=== PATIENT | female | born 1990 | race Caucasian/White ===

== ENCOUNTER 2023-04-18 09:12 | Inpatient (IN) | payer OTHER, SELFPAY ==
[2023-04-18] VITALS (27 sets, daily range): BP systolic 101–119; BP diastolic 57–74; PULSE 87–114; RESP 12–20; TEMP 36.4–43; O2SAT 94–987; BMI 21.4
--- NOTE | 2023-04-18 09:27 | ED_ITS ---
Discharge Plan Disposition Patient Disposition: Still a Patient Clinical Impressions Clinical Impression: Acute appendicitis Discharge ED Provider: Ignacio Ko General Adult HPI General Chief complaint: Abdominal Pain Stated complaint: abd pain Time Seen by Provider: 04/18/23 09:22 Mode of Arrival: Wheelchair Source of Information: Patient Limitations: No Limitations Description of Symptoms (Recalled from ER Triage Doc. by RN): r lower abdominal pain History of Present Illness HPI narrative: Patient is an otherwise healthy 32-year-old female presenting to the ED due to abdominal pain. Patient states she woke up in the middle of the night with severe right lower abdominal pain and nausea. She went to the bathroom and had a bowel movement. Proceeded to have episodes of vomiting. She returned to sleep however upon waking back up this morning, pain had worsened. She has continued to have associated nausea and vomiting and subjective fevers and chills. She states she has also had difficulty urinating this morning. It has been painful for her to urinate. Denies any blood in urine, stool or vomit. Denies any history of similar symptoms. Denies any abdominal surgeries. Last menstrual cycle was in January 2023 however reports she is on Depo shot. Related Data Home Medications Medication Instructions Recorded Confirmed buprenorphine 8 mg-naloxone 2 mg See Rx Instructions .Route .COMPLEX 04/18/23 04/18/23 sublingual tablet Allergies Allergy/AdvReac Type Severity Reaction Status Date / Time No Known Allergies Allergy Verified 04/18/23 09:39 [facility] Disclaimer: The information contained in this section may have been updated after the patient was seen, as this information can be updated by other users. Medical History (Updated 04/18/23 @ 17:01 by Tonya Nath) Substance abuse Surgical History (Updated 04/18/23 @ 17:00 by Tonya Nath) S/P appendectomy Family History (Updated 04/18/23 @ 17:00 by Tonya Nath) Other No significant family history Social History (Updated 04/18/23 @ 16:59 by Tonya Nath) Smoking Status: Current every day smoker alcohol intake: former substance use type: denies use current occupational status: employed and unemployed Travel in the last 8 weeks: None ROS Obtained: Yes All systems reviewed & no additional complaints except as documented Constitutional Constitutional: Reports chills and Reports fever(s) Cardiovascular Cardiovascular: Denies chest pain and Denies dyspnea Respiratory Respiratory: Denies shortness of breath, Denies cough and Denies dyspnea Gastrointestinal Gastrointestingal: Reports abdominal pain, nausea and vomiting Genitourinary Female Genitourinary: Reports difficulty voiding and Reports dysuria Musculoskeletal Musculoskeletal: Denies back pain Physical Exam General General appearance: alert and in no apparent distress Head Head exam: atraumatic, normocephalic and normal inspection Eye Eye exam: Present normal appearance, PERRL and EOMI ENT ENT exam: Present normal exam, normal oropharynx, mucous membranes moist, TM's normal bilaterally and normal external ear exam Neck Neck exam: Present normal inspection, full ROM and trachea midline; Absent meningismus or lymphadenopathy Chest Chest inspection: Present normal inspection and symmetric chest wall rise; Absent tenderness Respiratory Respiratory exam: Present normal lung sounds bilaterally; Absent respiratory distress Cardiovascular Cardiovascular exam: Present regular rate and normal rhythm; Absent JVD Abdominal Exam Abdominal exam: Present soft, tenderness and normal bowel sounds; Absent distention or guarding Abdominal tenderness: Present RLQ and suprapubic Comment: Generalized abdominal tenderness localized to right lower quadrant and suprapubic region. Extremities Exam Extremities exam: Present normal inspection, full ROM and normal capillary refill; Absent calf tenderness Back Exam Back exam: Present normal inspection; Absent tenderness Neurological Exam Neurological exam: Present alert and oriented X3 Psychiatric Psychiatric exam: Present normal affect and normal mood Skin Skin exam: Present warm, dry, intact and normal color Lymphatic Lymphatic Findings: no adenopathy Medical Decision Making Medical Records Medical records reviewed: Yes I reviewed the patient's medical records. Richard Inquiry Pt receiving controlled substance: No Richard was queried for this patient: No Vital Signs: 04/18/23 09:15 04/18/23 09:30 04/18/23 10:00 Temperature 98.3 F Temperature Source Oral Pulse Rate 98 H 92 H Pulse Rate [Right] 87 Respiratory Rate 20 18 Blood Pressure 119/70 115/67 Blood Pressure [Right Arm] 111/66 Blood Pressure Mean 83 Blood Pressure Mean [Right Arm] 81 Blood Pressure Source Blood Pressure Position 02 Sat by Pulse Oximetry 98 98 97 Oxygen Delivery Method Room Air Room Air 04/18/23 11:28 04/18/23 11:30 04/18/23 12:31 Temperature Temperature Source Pulse Rate 106 H 102 H 111 H Pulse Rate [Right] Respiratory Rate 20 Blood Pressure 111/69 114/74 105/63 L Blood Pressure [Right Arm] Blood Pressure Mean 87 83 Blood Pressure Mean [Right Arm] Blood Pressure Source Blood Pressure Position 02 Sat by Pulse Oximetry 97 96 95 Oxygen Delivery Method Room Air Room Air 04/18/23 13:00 04/18/23 13:18 Temperature 98.0 F Temperature Source Oral Pulse Rate 114 H 100 H Pulse Rate [Right] Respiratory Rate 16 Blood Pressure 107/64 L 107/64 L Blood Pressure [Right Arm] Blood Pressure Mean Blood Pressure Mean [Right Arm] Blood Pressure Source Automatic Cuff Blood Pressure Position Sitting 02 Sat by Pulse Oximetry 95 Oxygen Delivery Method Room Air Room Air Lab Data Lab Results 04/18/23 09:20: WBC 18.4 H, RBC 4.39, Hgb 14.1, Hct 43.2, MCV 98.4, MCH 32.2 H, MCHC 32.7, RDW 12.6, Plt Count 271, MPV 7.7, Neut % (Auto) 85.5 H, Lymph % (Auto) 10.0, [place] % (Auto) 4.0, Eos % (Auto) 0.2, Baso % (Auto) 0.4, Neut # (Auto) 15.7 H, Lymph # (Auto) 1.8, [place] # (Auto) 0.7, Eos # (Auto) 0.0, Baso # (Auto) 0.1, Total Counted 100, Neutrophils % (Manual) 84 H, Lymphocytes % (Manual) 13, Monocytes % (Manual) 3, Platelet Estimate Normal, RBC Morphology Normal, Sodium 140, Potassium 3.3 L, Chloride 107, Carbon Dioxide 25, Anion Gap 11.3, BUN 11, Creatinine 0.50 L, Estimated Creat Clear 146, Estimated GFR 144, Est GFR ( Amer) 174, Glucose 138 H, Lactate 0.9, Calcium 9.1, Total Bilirubin 0.9, AST 46 H, ALT 40, Alkaline Phosphatase 72, Total Protein 7.5, Albumin 4.3, Globulin 3.2, Albumin/Globulin Ratio 1.3, Lipase 38, Serum HCG, Qual Negative 04/18/23 11:45: Urine Color Yellow, Urine Appearance Clear, Urine pH 6.0, Ur Specific [place] 1.010, Urine Protein Negative, Urine Glucose (UA) Negative, Urine Ketones 1+, Urine Blood 1+, Urine Nitrate Negative, Urine Bilirubin Negative, Urine Urobilinogen 0.2, Ur Leukocyte Esterase Negative, Urine RBC Occasional, Urine WBC None, Ur Squamous Epith Cells 3-5, Urine Bacteria Trace, Urine HCG, Qual Negative 04/18/23 14:30: Urine Color Yellow, Urine Appearance Clear, Urine pH 6.0, Ur Specific [place] 1.015, Urine Protein Negative, Urine Glucose (UA) Negative, Urine Ketones 1+, Urine Blood 2+, Urine Nitrate Negative, Urine Bilirubin Negative, Urine Urobilinogen 0.2, Ur Leukocyte Esterase Negative 04/18/23 09:20 04/18/23 09:20 Orders (Tests/Meds): ED MEDICATIONS Generic Name Dose Route Start Last Admin Trade Name Freq PRN Reason Stop Dose Admin Acetaminophen 650 mg 04/18/23 16:02 Acetaminophen 325mg Tab PO 05/18/23 16:01 Q6HP PRN Mild to Moderate Pain (1-6) Hydrocodone Bitart/Acetaminophen 1 tab 04/18/23 16:02 Hydrocodone/Apap 5/325 Mg Tablet PO 05/18/23 16:01 Q6HP PRN Moderate to Severe Pain (4-10) Sodium Chloride 1,000 mls @ 500 mls/hr 04/18/23 09:30 04/18/23 09:48 Sod Chlor 0.9% 1000ml Bag IV 05/18/23 09:29 500 mls/hr .Q2H SAMARIA Administration Lactated Ringer's 1,000 mls @ 125 mls/hr 04/18/23 16:15 04/18/23 16:49 Lactated Ringer's 1000 Ml Bag IV 05/18/23 16:14 125 mls/hr .Q8H SAMARIA Administration Ampicillin Sodium/Sulbactam 100 mls @ 200 mls/hr 04/18/23 16:15 Sodium 3 gm/ Sodium Chloride IV 04/28/23 16:14 Q6H SAMARIA Meperidine HCl 25 mg 04/18/23 15:17 04/18/23 15:53 Meperidine 25mg/Ml 1ml Syringe IV 04/18/23 17:17 25 mg Q5MINP PRN Administration Shivering Morphine Sulfate 2 mg 04/18/23 15:17 Morphine 2mg/Ml Syringe IV 04/18/23 17:17 Q5MINP PRN Moderate Pain (4-6) Morphine Sulfate 1 mg 04/18/23 16:02 Morphine 2mg/Ml Syringe IV 05/18/23 16:01 Q2HP PRN Moderate to Severe Pain (4-10) Ondansetron HCl 4 mg 04/18/23 15:17 Ondansetron 4mg/2ml Vial IV 04/18/23 17:17 Q6HP PRN Nausea Sodium Chloride 10 ml 04/18/23 16:02 Sodium Chloride 0.9% 10ml Flush Syringe IV 05/18/23 16:01 NEEDED PRN Maintain IV Site Discontinued Medications Generic Name Dose Route Start Last Admin Trade Name Freq PRN Reason Stop Dose Admin Piperacillin Sod/Tazobactam 100 mls @ 200 mls/hr 04/18/23 13:00 Sod 4.5 gm/ Sodium Chloride IV 04/28/23 12:59 Q8H SAMARIA Iopamidol 75 ml 04/18/23 11:02 04/18/23 11:02 Iopamidol-370 (76%);100ml Bottle IV 04/18/23 11:03 75 ml ONCE ONE Administration Morphine Sulfate 4 mg 04/18/23 09:27 04/18/23 09:48 Morphine 4mg/Ml Syringe IV 04/18/23 09:28 4 mg ONCE ONE Administration Ondansetron HCl 4 mg 04/18/23 09:27 04/18/23 09:48 Ondansetron 4mg/2ml Vial IV 04/18/23 09:28 4 mg ONCE ONE Administration Sodium Chloride 10 ml 04/18/23 11:02 04/18/23 11:02 Sodium Chloride 0.9% 10ml Syr (Rad Only) IV 04/18/23 11:03 10 ml ONCE ONE Administration ORDERS Category Date Time Status CT abdomen pelvis w con Stat Cat Scan 04/18/23 09:27 Completed Complete Blood Count Auto Diff Stat Lab 04/18/23 09:20 Completed Comprehensive Metabolic Panel Stat Lab 04/18/23 09:20 Completed Lactic Acid Stat Lab 04/18/23 09:20 Completed Lipase Stat Lab 04/18/23 09:20 Completed Serum [HCG Qualitative, Serum] Stat Lab 04/18/23 09:20 Completed Urinalysis and Microscopic Stat Lab 04/18/23 11:45 Completed Urine , HCG Qual. Stat Lab 04/18/23 11:45 Completed Medical Decision Narrative: In summary, patient is previously healthy 32-year-old female, evaluated in the emergency department today due to right lower quadrant abdominal pain. On arrival, patient is [hemodynamically stable with normal vital signs]. On examination, patient has generalized abdominal tenderness, localized to the right lower quadrant and suprapubic region. Differential diagnosis includes but is not limited to urinary tract infection, kidney stone, pyelonephritis, appendicitis, gastritis, pancreatitis, biliary disease, bowel obstruction, . Workup initiated including CBC, CMP, lipase, lactate, urine , urinalysis, CT Abdo/pelvis with contrast. Patient given IV morphine, Zofran, LR bolus. Labs independently interpreted by me and significant for WBC 18.4 K. Imaging independently interpreted by me and significant for acute appendicitis seen on CT abdomen/pelvis. On reevaluation, patient's symptoms are better controlled. Given findings of appendicitis on CT imaging, IV Zosyn given and general surgery team consulted and case discussed with team. Patient taken to operating room for further management. I considered the utility of obtaining viral testing, but decided against this because this would not international exchange coordinator. Critical Care Critical Care Time Critical Care Time: No
--- NOTE | 2023-04-18 09:27 | CT_ITS ---
FINAL REPORT CLINICAL HISTORY: RLQ pain, nausea/vomiting, dysuria COMPARISON: None FINDINGS: CT OF THE ABDOMEN AND PELVIS WITH CONTRAST Axial CT images of the abdomen and pelvis were obtained after the administration of IV contrast. Coronal reformatted images were also obtained and reviewed. This study was performed with techniques to keep radiation doses as low as reasonably achievable (ALARA). Individualized dose reduction techniques using automated exposure control or adjustment of mA and/or kV according to the patient's size were employed. Abdomen: The lung bases are clear. The heart is normal in size. The liver has an unremarkable appearance, without evidence of mass or biliary ductal dilatation. The spleen is unremarkable. No adrenal mass is present. The pancreas has an unremarkable appearance. The kidneys are normal, without evidence of mass or hydronephrosis. The aorta is normal in caliber. There is no free fluid or adenopathy. No mass or abnormal fluid collection is seen. Pelvis: The appendix is enlarged with wall thickening and adjacent inflammation. The appearance is consistent with acute appendicitis. There is wall thickening at the base of the cecum, likely secondary inflammation. There is a small amount of fluid. The urinary bladder is unremarkable. There is no evidence of mass or adenopathy. There is no evidence of bowel obstruction. There is a large stool burden. IMPRESSION: Acute appendicitis. Reviewed, Interpreted and Dictated by Kayden Medina III, MD Transcribed by Kacey Villalobos Authenticated and . [facility]
[2023-04-18 09:37] LABS: Basophils # 0.1 K/mm3 (0-0.2); Basophils % 0.4 % (0.1-2.0); Eosinophils % 0.2 % (0.1-12.0); Hematocrit 43.2 % (37.0-47.0); Hemoglobin 14.1 g/dL (12.2-16.2); Lymphocytes # 1.8 K/mm3 (0.7-4.5); Mean Corpuscular HGB Conc 32.7 g/dL (31.8-35.4); Mean Corpuscular Hemoglobin 32.2 pg (27.0-31.2); Mean Corpuscular Volume 98.4 fl (81-99); Mean Platelet Volume 7.7 fl (7.4-10.4); Monocytes # 0.7 K/mm3 (0.1-1.0); Neutrophils # 15.7 K/mm3 (1.8-7.8); Neutrophils % 85.5 % (37.0-80.0); Platelet Count 271 K/mm3 (142-424); Red Blood Count 4.39 M/mm3 (4.20-5.40); Red Cell Distribution Width 12.6 % (11.5-17.5); White Blood Count 18.4 K/mm3 (4.8-10.8)
[2023-04-18 09:39] LABS: MANUAL DIFFERENTIAL MANUAL DIFFERENTIAL (MANUAL DIFF)
[2023-04-18 09:40] LABS: Alanine Aminotransferase 40 U/L (12-78); Albumin Level 4.3 g/dl (3.5-5.0); Albumin/Globulin Ratio 1.3 (1.1-1.8); Alkaline Phosphatase 72 U/L (38-126); Anion Gap 11.3 mEq/L (5-15); Aspartate Amino Transferase 46 U/L (14-36); Bilirubin,Total 0.9 mg/dl (0.2-1.3); Blood Urea Nitrogen 11 mg/dl (7-17); Calcium 9.1 mg/dl (8.4-10.2); Carbon Dioxide 25 mmol/L (22.0-30.0); Chloride 107 mmol/L (98-107); Creatinine Clearance Estimated 146 mL/min (50-200); Estimated Glomerular Filt Rate 144 ml/min (>60); GFR (African American) 174 ML/MIN (>60); Globulin 3.2 g/dL (1.3-3.2); Glucose 138 mg/dl (74-100); Lipase 38 U/L (23-300); Potassium 3.3 mmoL/L (3.5-5.1); Sodium 140 mmol/L (136-145); Total Protein,Serum 7.5 g/dl (6.3-8.2)
[2023-04-18 09:44] LABS: Lactic Acid 0.9 mmol/L (0.7-2.1)
[2023-04-18] MEDS: ONDANSETRON 4MG/2ML VIAL 4 MG IV (09:48)
[2023-04-18] MEDS: 0.9 % SODIUM CHLORIDE 1000ML 1,000 ML 500 ML IV (09:48)
[2023-04-18] MEDS: MORPHINE 4MG/ML SYRINGE 4 MG IV (09:48)
--- NOTE | 2023-04-18 09:51 | PC.NURSE ---
Pt resting in bed. Warm blanket provided. Call light within reach.
--- NOTE | 2023-04-18 10:03 | HMH.ITSTN ---
ct pending. waiting results of preg test.
--- NOTE | 2023-04-18 10:13 | PC.NURSE ---
Rounded on pt. Advised her pain had improved slightly. Pt provided with warm blanket. Call light remains within reach.
--- NOTE | 2023-04-18 10:26 | PC.NURSE ---
pt was unable to void @ this time.
[2023-04-18 10:34] LABS: Lymphocytes % 13 % (10-50); Monocytes % 3 % (2-9); Neutrophils % 84 % (42-76); Platelet Estimate Normal; RBC Morphology Normal; Total Cells Counted 100
--- NOTE | 2023-04-18 10:37 | PC.NURSE ---
Rounded on Pt to see if they had any needs. Pt stated had no needs at this time.
[2023-04-18 10:40] LABS: HCG Qualitative, Serum Negative (Negative)
--- NOTE | 2023-04-18 10:53 | PC.NURSE ---
PT TO CT
[2023-04-18] MEDS: IOPAMIDOL-370 (76%);100ML BOTTLE 75 ML IV (11:02)
[2023-04-18] MEDS: SODIUM CHLORIDE 0.9% 10ML SYR (RAD ONLY) 10 ML IV (11:02)
--- NOTE | 2023-04-18 11:28 | PC.NURSE ---
Rounded on pt. No needs voiced. Call light within reach
[2023-04-18 11:47] LABS: Microscopic, Urine URINE MICROSCOPIC (MICROSCOPIC)
[2023-04-18 11:51] LABS: Appearance,Urine CLEAR (Clear); Bilirubin,Urine Negative (Negative); Blood, Urine 1+ (Negative); Color,Urine YELLOW (Yellow); Glucose,Urine (UA) Negative (Negative); Ketones,Urine 1+ (Negative); Leukocyte Esterase,Urine Negative (Negative); Nitrate,Urine Negative (Negative); Protein,Urine Negative (Negative); Urobilinogen,Urine 0.2 EU/dl (0.2)
[2023-04-18 11:55] LABS: Urine Pregnancy, HCG Qual. Negative (Negative)
[2023-04-18 12:16] LABS: Bacteria,Urine Trace /lpf; RBC,Urine Occasional #/hpf (0-3)
--- NOTE | 2023-04-18 12:31 | PC.NURSE ---
Rounded on pt. No needs voiced. Call light remains within reach.
--- NOTE | 2023-04-18 12:53 | PC.NURSE ---
paged Dr Plaza
--- NOTE | 2023-04-18 13:01 | PC.NURSE ---
Dr. Ko speaking with Dr. ya
--- NOTE | 2023-04-18 13:02 | PC.NURSE ---
pt given mouth swabs d/t not being able to have anything to eat or drink.
--- NOTE | 2023-04-18 13:03 | PC.NURSE ---
ED MD AT BEDSIDE TO UPDATE PT ON POC
--- NOTE | 2023-04-18 13:10 | PC.NURSE ---
SURGERY CONSENT EXPLAINED AND SIGNED AT THIS TIME
--- NOTE | 2023-04-18 13:17 | PC.NURSE ---
REPORT GIVEN TO YARITZA IN SURGERY
--- NOTE | 2023-04-18 14:07 | EXP.GEN.HP ---
HPI HPI HPI: Patient is a 32-year-old female who had awoken with abdominal pain overnight. She actually did go back to sleep but then awoke once again with more severe abdominal pain. She had associated nausea with vomiting. She presented to the emergency department where she was seen and evaluated. She had a leukocytosis of 18,400. She underwent CT scan which revealed findings of acute appendicitis. Surgical consultation was obtained [facility] Disclaimer: The information contained in this section may have been updated after the patient was seen, as this information can be updated by other users. Social History (Updated 04/18/23 @ 15:16 by Tom Carlson CRNA) Smoking Status: Current every day smoker alcohol intake: former substance use type: denies use current occupational status: unemployed Travel in the last 8 weeks: None Review of Systems Review of Systems Review of systems:: pertinent systems reviewed and negative unless documented below Meds Home Medications and Allergies New Prescriptions to Start Prescriptions: Allergies Allergy/AdvReac Type Severity Reaction Status Date / Time No Known Allergies Allergy Verified 04/18/23 09:39 Exam Data for Last 24 hours Vital signs and Labs for Last 24 Hours: Temp Pulse Resp BP Pulse Ox O2 Del Method 98.0 F 100 H 16 107/64 L 95 Room Air 04/18/23 13:18 04/18/23 13:18 04/18/23 13:18 04/18/23 13:18 04/18/23 13:00 04/18/23 13:18 Laboratory Results - last 24 hr 04/18/23 09:20: WBC 18.4 H, RBC 4.39, Hgb 14.1, Hct 43.2, MCV 98.4, MCH 32.2 H, MCHC 32.7, RDW 12.6, Plt Count 271, MPV 7.7, Neut % (Auto) 85.5 H, Lymph % (Auto) 10.0, [place] % (Auto) 4.0, Eos % (Auto) 0.2, Baso % (Auto) 0.4, Neut # (Auto) 15.7 H, Lymph # (Auto) 1.8, [place] # (Auto) 0.7, Eos # (Auto) 0.0, Baso # (Auto) 0.1, Total Counted 100, Neutrophils % (Manual) 84 H, Lymphocytes % (Manual) 13, Monocytes % (Manual) 3, Platelet Estimate Normal, RBC Morphology Normal, Sodium 140, Potassium 3.3 L, Chloride 107, Carbon Dioxide 25, Anion Gap 11.3, BUN 11, Creatinine 0.50 L, Estimated Creat Clear 146, Estimated GFR 144, Est GFR ( Amer) 174, Glucose 138 H, Lactate 0.9, Calcium 9.1, Total Bilirubin 0.9, AST 46 H, ALT 40, Alkaline Phosphatase 72, Total Protein 7.5, Albumin 4.3, Globulin 3.2, Albumin/Globulin Ratio 1.3, Lipase 38, Serum HCG, Qual Negative 04/18/23 11:45: Urine Color Yellow, Urine Appearance Clear, Urine pH 6.0, Ur Specific [place] 1.010, Urine Protein Negative, Urine Glucose (UA) Negative, Urine Ketones 1+, Urine Blood 1+, Urine Nitrate Negative, Urine Bilirubin Negative, Urine Urobilinogen 0.2, Ur Leukocyte Esterase Negative, Urine RBC Occasional, Urine WBC None, Ur Squamous Epith Cells 3-5, Urine Bacteria Trace, Urine HCG, Qual Negative I & O for Last 24 hours: Intake & Output 04/16/23 04/17/23 04/18/23 04/19/23 11:59 11:59 11:59 11:59 Weight 125 lb Constitutional Constitutional: no acute distress *Routine HEENT Exam Head: Present normocephalic Eye: Present EOMI and PERRL ENT: Present mucous membranes moist *Routine Neck Exam Neck: Present supple; Absent lymphadenopathy *Routine Respiratory Exam Respiratory: Present CTA bilaterally *Routine Cardiovascular Exam Cardiovascular: Present RRR *Routine Abdominal Exam Abdominal: Present soft and tenderness Comments: Patient has diffuse tenderness with guarding particularly right lower quadrant and suprapubic location. *Routine Rectal Exam Rectal:: deferred *Routine Genitalia Exam Genitalia:: deferred *Routine Extremities Exam Extremities: Absent cyanosis, clubbing or edema *Routine Skin Exam Skin: Present warm; Absent rash *Routine Neurological Exam Neurological: Present alert and oriented X3 Results Results Lab Results Last 24 Hours:: Laboratory Results - last 24 hr 04/18/23 09:20: WBC 18.4 H, RBC 4.39, Hgb 14.1, Hct 43.2, MCV 98.4, MCH 32.2 H, MCHC 32.7, RDW 12.6, Plt Count 271, MPV 7.7, Neut % (Auto) 85.5 H, Lymph % (Auto) 10.0, [place] % (Auto) 4.0, Eos % (Auto) 0.2, Baso % (Auto) 0.4, Neut # (Auto) 15.7 H, Lymph # (Auto) 1.8, [place] # (Auto) 0.7, Eos # (Auto) 0.0, Baso # (Auto) 0.1, Total Counted 100, Neutrophils % (Manual) 84 H, Lymphocytes % (Manual) 13, Monocytes % (Manual) 3, Platelet Estimate Normal, RBC Morphology Normal, Sodium 140, Potassium 3.3 L, Chloride 107, Carbon Dioxide 25, Anion Gap 11.3, BUN 11, Creatinine 0.50 L, Estimated Creat Clear 146, Estimated GFR 144, Est GFR ( Amer) 174, Glucose 138 H, Lactate 0.9, Calcium 9.1, Total Bilirubin 0.9, AST 46 H, ALT 40, Alkaline Phosphatase 72, Total Protein 7.5, Albumin 4.3, Globulin 3.2, Albumin/Globulin Ratio 1.3, Lipase 38, Serum HCG, Qual Negative 04/18/23 11:45: Urine Color Yellow, Urine Appearance Clear, Urine pH 6.0, Ur Specific [place] 1.010, Urine Protein Negative, Urine Glucose (UA) Negative, Urine Ketones 1+, Urine Blood 1+, Urine Nitrate Negative, Urine Bilirubin Negative, Urine Urobilinogen 0.2, Ur Leukocyte Esterase Negative, Urine RBC Occasional, Urine WBC None, Ur Squamous Epith Cells 3-5, Urine Bacteria Trace, Urine HCG, Qual Negative Assessment and Plan *Assessment and plan (1) Acute appendicitis: Status: Acute Category: Medical Code(s): K35.80 - Unspecified acute appendicitis Plan Plan will be to proceed with laparoscopic possibly open appendectomy.
[2023-04-18] MEDS: AMPICILLIN/SULBACTAM 3 GM VIAL IV (14:40)
[2023-04-18] MEDS: 0.9 % SODIUM CHLORIDE 100 ML IV (14:40)
[2023-04-18] MEDS: ROPIVACAINE 0.5% 30ML VIAL 150 MG (14:48)
[2023-04-18] MEDS: LIDOCAINE 1% 20ML MDV 20 ML (14:48)
--- NOTE | 2023-04-18 15:15 | P.PNANES_ITS ---
[facility] Disclaimer: The information contained in this section may have been updated after the patient was seen, as this information can be updated by other users. Social History Smoking Status: Current every day smoker alcohol intake: former substance use type: denies use current occupational status: unemployed Travel in the last 8 weeks: None [facility] Anesthesia Checklist Patient Identification Patient Identification: Verbal (Name & ) Structural Data Admitted From: Emergency Dept Planned Operative Procedure/s: lap appy Consent for Planned Operative Procedure(s) Verified: Yes NPO Status Verified Time NPO: 00:00 Airway Assessment Mallampati Score:: Class II C-Spine Mobility Assessed: Yes TMJ Mobility Assessed: Yes Dentition: Poor Dentition Neurological Assessment Level of Consciousness: Awake, Alert and Appropriate Anesthesia Plan Anesthesia Risk discussed: Yes Anesthesia Plan: Verified ASA Class: III Anesthesia Type: General Preoperative Comments Pre-Operative Comments: rotted and missing front teeth prior to surgery
--- NOTE | 2023-04-18 15:48 | P.OP_ITS ---
Date of procedure: 04/18/23 Pre-op Diagnosis:: Acute appendicitis Post-op Diagnosis:: Acute perforated necrotic appendicitis with established peritonitis Procedure performed:: Laparoscopic appendectomy Surgeon:: Kayden Plaza MD PROVIDER RELATIONS REP:: Tom Carlson Anesthesia: GETA Estimated blood loss (mL): 15 Clinical Note:: Patient is a 32-year-old female who had woken with abdominal pain overnight. She actually did go back to sleep but then awoke once again with more severe ab dominal pain. She had associated nausea with vomiting. She presented to the emergency department where she was seen and evaluated. She had a leukocytosis of 18,400. She underwent CT scan which revealed findings of acute appendicitis. Surgical consultation was obtained Operative findings:: Patient had a severely distended appendix with evidence of full-thickness necrosis with perforation near the base. There was established purulence with somewhat feculent peritonitis throughout the abdomen. This was consistent with necrotizing appendicitis with perforation and established peritonitis. She did have findings consistent with fatty infiltration of the liver. Operative note:: Consent was obtained patient was taken to the operating room. She was given preoperative intravenous antibiotics. In the operating room she was placed in a supine position. General anesthesia was induced via endotracheal tube. [place] catheter was placed. Abdomen was prepped and draped in the standard surgical fashion. Subumbilical skin incision was made and while performing abdominal wall lift Veress needle was inserted. CO2 pneumoperitoneum was achieved to 15 mmHg. 12 mm optical trocar was inserted into the abdominal cavity. Immediately noted was evidence of edema in the right lower quadrant essentially with almost a phlegmon formation. There was noted fibrinous purulent exudate with some pus along the right colon, perihepatic space, and in the pelvis. This was suctioned free. Omentum was adherent to the appendix and this was easily removed. Appendix was noted to be markedly distended and tense with evidence of necrosis with perforation near its base. There was evidence of microperforation at the site of the full-thickness necrosis. 5 mm trocar was inserted under laparoscopic vision patient in the left lower pelvis and in the right upper abdomen. 10 mm laparoscope was replaced with a 5 mm 30 degree laparoscope. Appendix was grasped with a [place]. Mesoappendix was carefully divided with BARBARA ultrasonic harmonic mary with care taken to coagulate the appendiceal artery in the process. Appendix was markedly inflamed down to its base with adjacent cecum somewhat edematous and erythematous. The appendix was removed from the cecum. This required using a total of 3 loads of the MEGAN linear cutting stapling device taking a cuff of cecum to relatively normal tissue. Appendix was placed within an Endo Catch retrieval device and removed from the peritoneal cavity via the umbilical trocar site. The staple line was thoroughly inspected for hemostasis and integrity. This was ensured. Irrigation was then performed evacuating purulence, feculence, and exudate. Trocars were then removed as CO2 pneumoperitoneum was evacuated. Fascia at the umbilicus was closed with a couple of 0 Vicryl sutures. Local anesthetic was infiltrated. Skin incisions were closed with 4-0 Monocryl in a subcuticular fashion. Dermabond and dressings were applied. Condition: stable Disposition: PACU Complications:: None immediately apparent
--- NOTE | 2023-04-18 15:48 | EXP.ANES.I ---
[facility] Anesthesia Record Part I Anesthesia Record I Intake, IV Amount: 1,500 Hydration: Adequate Estimated blood loss (mL): 0 Urine output (mL): 300 Blood Pressure: 114/67 SaO2: 987 Pulse Rate: 102 Airway Patency: Patent Respiratory Rate: 12 Temperature: 97.5 F Patient is:: Awake and Stable Stable to PACU at:: 15:45
[2023-04-18] MEDS: MEPERIDINE 25MG/ML 1ML SYRINGE 25 MG IV (15:53)
[2023-04-18 16:21] LABS: Microscopic,Cath URINE MICROSCOPIC (MICROSCOPIC)
[2023-04-18 16:31] LABS: Appearance,Urine/Cath CLEAR (Clear); Bilirubin,Cath Negative (Negative); Blood, Urine/Cath 2+ (Negative); Color,Urine/Cath YELLOW (Yellow); Glucose,Urine/Cath (UA) Negative (Negative); Ketones,Urine/Cath 1+ (Negative); Leukocyte Esterase,Cath Negative (Negative); Nitrate,Cath Negative (Negative); Protein,Urine/Cath Negative (Negative); Specific Gravity, Urine/Cath 1.015 (1.005-1.030); Urobilinogen,Cath 0.2 EU/dl (0.2)
--- NOTE | 2023-04-18 16:37 | PC.NURSE ---
arrived by bed to floor from surgery
[2023-04-18] MEDS: LACTATED RINGERS 1000ML 1,000 ML 125 ML IV (16:49)
[2023-04-18 17:23] LABS: Bacteria,Urine/Cath TRACE /lpf; RBC,Urine/Cath Occasional # /hpf (0-3); Squamous Epithelial Ur./Cath Occasional #/hpf (0-5)
[2023-04-18] MEDS: AMPICILLIN SODIUM/SULBACTAM 3 GM in 0.9 % SODIUM CHLORIDE 100 ML IV ×2 (17:55→22:42)
--- NOTE | 2023-04-18 18:21 | EXP.HP ---
History of Present Illness *Admission Date: 04/18/23 *Reason for visit:: Abdominal Pain *History of present illness: Patient is a 32-year-old female with past medical history of hepatitis C IV drug abuse, substance abuse, per patient she has not used any drugs for past 7 years presented to hospital due to abdominal pain 10/10 intensity associated with nausea vomiting. Patient was found to have acute appendicitis, patient was taken to the OR, patient had appendectomy performed. Patient was admitted for possible infection management and postoperative care. Patient denied fever chills PFSH PFSH Disclaimer: The information contained in this section may have been updated after the patient was seen, as this information can be updated by other users. Medical History (Updated 04/18/23 @ 17:01 by Tonya Nath) Substance abuse Surgical History (Updated 04/18/23 @ 17:00 by Tonya Nath) S/P appendectomy Family History (Updated 04/18/23 @ 17:00 by Tonya Nath) Other No significant family history Social History (Updated 04/18/23 @ 16:59 by Tonya Nath) Smoking Status: Current every day smoker alcohol intake: former substance use type: denies use current occupational status: employed and unemployed Travel in the last 8 weeks: None Review of Systems Review of Systems Review of systems (narrative): as per HPI Meds Home Medications and Allergies Home Medications Medication Instructions Recorded Confirmed Type buprenorphine 8 mg-naloxone 2 mg See Rx Instructions .Route .COMPLEX 04/18/23 04/18/23 History sublingual tablet New Prescriptions to Start Prescriptions: Allergies Allergy/AdvReac Type Severity Reaction Status Date / Time No Known Allergies Allergy Verified 04/18/23 09:39 Exam Data for Last 24 hours Vital signs and Labs for Last 24 Hours: Temp Pulse Resp BP Pulse Ox O2 Del Method 98.3 F 103 H 16 109/64 L 94 L Room Air 04/18/23 17:10 04/18/23 17:55 04/18/23 17:55 04/18/23 17:55 04/18/23 17:55 04/18/23 17:55 Laboratory Results - last 24 hr 04/18/23 09:20: WBC 18.4 H, RBC 4.39, Hgb 14.1, Hct 43.2, MCV 98.4, MCH 32.2 H, MCHC 32.7, RDW 12.6, Plt Count 271, MPV 7.7, Neut % (Auto) 85.5 H, Lymph % (Auto) 10.0, [place] % (Auto) 4.0, Eos % (Auto) 0.2, Baso % (Auto) 0.4, Neut # (Auto) 15.7 H, Lymph # (Auto) 1.8, [place] # (Auto) 0.7, Eos # (Auto) 0.0, Baso # (Auto) 0.1, Total Counted 100, Neutrophils % (Manual) 84 H, Lymphocytes % (Manual) 13, Monocytes % (Manual) 3, Platelet Estimate Normal, RBC Morphology Normal, Sodium 140, Potassium 3.3 L, Chloride 107, Carbon Dioxide 25, Anion Gap 11.3, BUN 11, Creatinine 0.50 L, Estimated Creat Clear 146, Estimated GFR 144, Est GFR ( Amer) 174, Glucose 138 H, Lactate 0.9, Calcium 9.1, Total Bilirubin 0.9, AST 46 H, ALT 40, Alkaline Phosphatase 72, Total Protein 7.5, Albumin 4.3, Globulin 3.2, Albumin/Globulin Ratio 1.3, Lipase 38, Serum HCG, Qual Negative 04/18/23 11:45: Urine Color Yellow, Urine Appearance Clear, Urine pH 6.0, Ur Specific [place] 1.010, Urine Protein Negative, Urine Glucose (UA) Negative, Urine Ketones 1+, Urine Blood 1+, Urine Nitrate Negative, Urine Bilirubin Negative, Urine Urobilinogen 0.2, Ur Leukocyte Esterase Negative, Urine RBC Occasional, Urine WBC None, Ur Squamous Epith Cells 3-5, Urine Bacteria Trace, Urine HCG, Qual Negative 04/18/23 14:30: Urine Color Yellow, Urine Appearance Clear, Urine pH 6.0, Ur Specific [place] 1.015, Urine Protein Negative, Urine Glucose (UA) Negative, Urine Ketones 1+, Urine Blood 2+, Urine Nitrate Negative, Urine Bilirubin Negative, Urine Urobilinogen 0.2, Ur Leukocyte Esterase Negative, Urine RBC Occasional, Urine WBC None, Ur Squamous Epith Cells Occasional, Urine Bacteria Trace I & O for Last 24 hours: Intake & Output 04/15/23 04/16/23 04/17/23 04/18/23 23:59 23:59 23:59 23:59 Intake Total 1500 / 1500 Balance 1500 / 1500 Weight 56.699 kg Constitutional Constitutional: no acute distress *Routine HEENT Exam Head: Present normocephalic Eye: Present EOMI and PERRL ENT: Present mucous membranes moist *Routine Neck Exam Neck: Present supple; Absent lymphadenopathy *Routine Respiratory Exam Respiratory: Present CTA bilaterally *Routine Cardiovascular Exam Cardiovascular: Present RRR *Routine Abdominal Exam Abdominal: Present tenderness Comments: abdomen is covered with dressing, I did not remove dressing *Routine Rectal Exam Rectal:: deferred *Routine Genitalia Exam Genitalia:: deferred *Routine Extremities Exam Extremities: Absent cyanosis, clubbing or edema *Routine Skin Exam Skin: Present warm; Absent rash *Routine Neurological Exam Neurological: Present alert and oriented X3 Assessment and Plan *Assessment and plan (1) Acute appendicitis: Status: Acute Category: Medical Code(s): K35.80 - Unspecified acute appendicitis Plan Patient is a 32-year-old female with past medical history of hepatitis C IV drug abuse, substance abuse, per patient she has not used any drugs for past 7 years presented to hospital due to abdominal pain 10/10 intensity associated with nausea vomiting. Patient was found to have acute appendicitis, patient was taken to the OR, patient had appendectomy performed. Patient was admitted for possible infection management and postoperative care. Assessment and plan Acute appendicitis status post appendectomy History of substance abuse History of hepatitis C Plan Started on IV antibiotics Continue n.p.o. for now, advance diet as tolerated IV fluids Pain control Check blood cultures Increase mobility Monitor for withdrawal symptoms DVT prophylaxis-heparin
[2023-04-18] MEDS: HEPARIN SODIUM 5,000 UNIT/ML VIAL 5000 UNIT SQ (18:56)
[2023-04-18] MEDS: MORPHINE 2MG/ML SYRINGE 1 MG IV (18:56)
--- NOTE | 2023-04-18 19:16 | PC.NURSE ---
LAP APPY TODAY. INCISION SITES C/D/I. MEDICATED FOR PAIN X1 WITH GOOD EFFECTIVENESS. TOLERATING SIPS AND CHIPS AT THIS TIME.
[2023-04-18] MEDS: LACTATED RINGERS 1000ML 1,000 ML 50 ML IV (19:20)
[2023-04-19] VITALS (7 sets, daily range): BP systolic 98–113; BP diastolic 55–66; PULSE 77–87; RESP 16–20; TEMP 36.4–37.2; O2SAT 95–97; BMI 21.4
[2023-04-19] MEDS: MORPHINE 2MG/ML SYRINGE 2 MG IV (00:07)
[2023-04-19] MEDS: HEPARIN SODIUM 5,000 UNIT/ML VIAL 5000 UNIT SQ (02:58)
[2023-04-19] MEDS: AMPICILLIN SODIUM/SULBACTAM 3 GM in 0.9 % SODIUM CHLORIDE 100 ML IV ×4 (03:15→21:26)
[2023-04-19 06:23] LABS: Alanine Aminotransferase 29 U/L (12-78); Albumin Level 2.9 g/dl (3.5-5.0); Albumin/Globulin Ratio 1.1 (1.1-1.8); Alkaline Phosphatase 45 U/L (38-126); Anion Gap 4.9 mEq/L (5-15); Aspartate Amino Transferase 28 U/L (14-36); Bilirubin,Total 0.6 mg/dl (0.2-1.3); Blood Urea Nitrogen 11 mg/dl (7-17); Calcium 8.1 mg/dl (8.4-10.2); Carbon Dioxide 29 mmol/L (22.0-30.0); Chloride 109 mmol/L (98-107); Creatinine Clearance Estimated 184 mL/min (50-200); Estimated Glomerular Filt Rate 186 ml/min (>60); GFR (African American) 225 ML/MIN (>60); Globulin 2.7 g/dL (1.3-3.2); Glucose 137 mg/dl (74-100); Sodium 140 mmol/L (136-145); Total Protein,Serum 5.6 g/dl (6.3-8.2)
[2023-04-19 06:35] LABS: Basophils % 0.1 % (0.1-2.0); Hematocrit 35.7 % (37.0-47.0); Lymphocytes # 1.3 K/mm3 (0.7-4.5); Lymphocytes % 10.4 % (10-50); Mean Corpuscular HGB Conc 32.3 g/dL (31.8-35.4); Mean Corpuscular Hemoglobin 31.5 pg (27.0-31.2); Mean Corpuscular Volume 97.7 fl (81-99); Mean Platelet Volume 8.1 fl (7.4-10.4); Monocytes # 0.3 K/mm3 (0.1-1.0); Monocytes % 2.7 % (1.7-9.3); Neutrophils % 86.8 % (37.0-80.0); Platelet Count 175 K/mm3 (142-424); Red Blood Count 3.65 M/mm3 (4.20-5.40); Red Cell Distribution Width 12.4 % (11.5-17.5); White Blood Count 12.7 K/mm3 (4.8-10.8)
[2023-04-19 06:36] LABS: Hemoglobin 11.5 g/dL (12.2-16.2); MANUAL DIFFERENTIAL MANUAL DIFFERENTIAL (MANUAL DIFF)
[2023-04-19 06:41] LABS: Potassium 2.9 mmoL/L (3.5-5.1)
--- NOTE | 2023-04-19 06:42 | PC.NURSE ---
Patient alert and orient x4. Family in to visit at beginning of shift. Patient very pleasant, took all medication as ordered. 3 scope sites to abdomen noted with dressings to be C/D/I. PRN Morphine given as ordered with effectiveness. Patient had one dose of PRN Morphine on this shift. Critical Potassium level of 2.9 called to bond underwriter from Lab at 0640. Stem Sizer notified Zechariah ISAAC of critical lab. Patient currently laying in bed with eyes close. Patient rested well overnight.
[2023-04-19 07:02] LABS: Lymphocytes % 9 % (10-50); Monocytes % 3 % (2-9); Neutrophils % 88 % (42-76); Platelet Estimate Normal; RBC Morphology Normal; Total Cells Counted 100
--- NOTE | 2023-04-19 07:14 | HMH.PHAINT1 ---
Pharmacy Intervention Comments: Verified home medications using external fill history and spoke with patient at bedside to verify she is taking 1.25 tablets PO QD.
--- NOTE | 2023-04-19 07:32 | P.PN_ITS ---
Subjective Narrative: Patient states that she feels better. Complains of soreness. Exam Data for Last 24 hours Vital signs and Labs for Last 24 Hours: Temp Pulse Resp BP Pulse Ox O2 Del Method 99.0 F 83 18 105/56 L 97 Room Air 04/19/23 04:00 04/19/23 04:00 04/19/23 04:00 04/19/23 04:00 04/19/23 04:00 04/19/23 05:00 Laboratory Results - last 24 hr 04/18/23 09:20: WBC 18.4 H, RBC 4.39, Hgb 14.1, Hct 43.2, MCV 98.4, MCH 32.2 H, MCHC 32.7, RDW 12.6, Plt Count 271, MPV 7.7, Neut % (Auto) 85.5 H, Lymph % (Auto) 10.0, [place] % (Auto) 4.0, Eos % (Auto) 0.2, Baso % (Auto) 0.4, Neut # (Auto) 15.7 H, Lymph # (Auto) 1.8, [place] # (Auto) 0.7, Eos # (Auto) 0.0, Baso # (Auto) 0.1, Total Counted 100, Neutrophils % (Manual) 84 H, Lymphocytes % (Manual) 13, Monocytes % (Manual) 3, Platelet Estimate Normal, RBC Morphology Normal, Sodium 140, Potassium 3.3 L, Chloride 107, Carbon Dioxide 25, Anion Gap 11.3, BUN 11, Creatinine 0.50 L, Estimated Creat Clear 146, Estimated GFR 144, Est GFR ( Amer) 174, Glucose 138 H, Lactate 0.9, Calcium 9.1, Total Bilirubin 0.9, AST 46 H, ALT 40, Alkaline Phosphatase 72, Total Protein 7.5, Albumin 4.3, Globulin 3.2, Albumin/Globulin Ratio 1.3, Lipase 38, Serum HCG, Qual Negative 04/18/23 11:45: Urine Color Yellow, Urine Appearance Clear, Urine pH 6.0, Ur Specific [place] 1.010, Urine Protein Negative, Urine Glucose (UA) Negative, Urine Ketones 1+, Urine Blood 1+, Urine Nitrate Negative, Urine Bilirubin Negative, Urine Urobilinogen 0.2, Ur Leukocyte Esterase Negative, Urine RBC Occasional, Urine WBC None, Ur Squamous Epith Cells 3-5, Urine Bacteria Trace, Urine HCG, Qual Negative 04/18/23 14:30: Urine Color Yellow, Urine Appearance Clear, Urine pH 6.0, Ur Specific [place] 1.015, Urine Protein Negative, Urine Glucose (UA) Negative, Urine Ketones 1+, Urine Blood 2+, Urine Nitrate Negative, Urine Bilirubin Negative, Urine Urobilinogen 0.2, Ur Leukocyte Esterase Negative, Urine RBC Occasional, Urine WBC None, Ur Squamous Epith Cells Occasional, Urine Bacteria Trace 04/19/23 05:17: WBC 12.7 H D, RBC 3.65 L, Hgb 11.5 L D, Hct 35.7 L, MCV 97.7, MCH 31.5 H, MCHC 32.3, RDW 12.4, Plt Count 175 D, MPV 8.1, Neut % (Auto) 86.8 H , Lymph % (Auto) 10.4, [place] % (Auto) 2.7, Eos % (Auto) 0.0 L, Baso % (Auto) 0.1, Neut # (Auto) 11.0 H, Lymph # (Auto) 1.3, [place] # (Auto) 0.3, Eos # (Auto) 0.0, Baso # (Auto) 0.0, Total Counted 100, Neutrophils % (Manual) 88 H, Lymphocytes % (Manual) 9 L, Monocytes % (Manual) 3, Platelet Estimate Normal, RBC Morphology Normal, Sodium 140, Potassium 2.9 L*, Chloride 109 H, Carbon Dioxide 29, Anion Gap 4.9 L, BUN 11, Creatinine 0.40 L, Estimated Creat Clear 184, Estimated GFR 186, Est GFR ( Amer) 225 D, Glucose 137 H, Calcium 8.1 L, Total Bilirubin 0.6, AST 28 D, ALT 29 D, Alkaline Phosphatase 45, Total Protein 5.6 L D, Albumin 2.9 L D, Globulin 2.7, Albumin/Globulin Ratio 1.1 I & O for Last 24 hours: Intake & Output 04/16/23 04/17/23 04/18/23 04/19/23 11:59 11:59 11:59 11:59 Intake Total 1620 / 1620 Output Total 0 / 0 Balance 1620 / 1620 Weight 125 lb 126 lb *Routine Abdominal Exam Abdominal: Present soft Comments: Dressings dry. Progress Note: A&P Assessment and plan (1) Acute appendicitis: Status: Acute Assessment and plan: Patient had perforated necrotizing appendicitis with established peritonitis. Continue inpatient IV antibiotics for now. Still with mild leukocytosis. Start clear liquid diet. Monitor H/H for stability.
[2023-04-19] MEDS: POTASSIUM CHLORIDE 20MEQ TAB 40 MEQ PO ×2 (08:28→21:26)
[2023-04-19] MEDS: KCl 10mEq/100ml 100 ML 100 MEQ IV ×2 (08:29→10:18)
--- NOTE | 2023-04-19 10:46 | EXP.ACUTE.PN ---
Subjective *Date: 04/19/23 *Time: 21:09 Interval history: Afebrile overnight. Still having some abdominal pain. No nausea or vomiting. Tolerating clear liquids. Wants to go home however discussed that she had separative/perforated appendicitis. Concern for peritonitis. Continuing antibiotics. White cell count improving. Medical Exam Vital signs and Labs for Last 24 Hours: Vital Signs Temp Pulse Pulse Resp BP BP Pulse Ox 04/19/23 10:07 04/19/23 08:00 97.5 F L 82 20 113/62 95 04/19/23 08:35 04/18/23 23:25 98.2 F 105 H 14 103/64 L 98 04/18/23 22:25 98.5 F 97 H 15 110/57 L 98 04/18/23 21:25 98.0 F 101 H 14 108/67 L 97 04/18/23 20:25 98.2 F 99 H 16 117/61 97 04/18/23 19:25 98.5 F 106 H 16 102/60 L 96 04/19/23 05:00 04/19/23 03:00 04/18/23 20:00 04/19/23 04:00 99.0 F 83 18 105/56 L 97 04/19/23 01:00 04/19/23 00:00 98.1 F 87 18 101/63 L 97 04/18/23 23:00 04/18/23 21:00 04/18/23 19:00 04/18/23 17:00 04/18/23 18:55 98 H 16 106/70 L 98 04/18/23 18:25 112 H 16 109/63 L 96 04/18/23 17:55 103 H 16 109/64 L 94 L 04/18/23 17:25 105 H 16 110/62 94 L 04/18/23 17:10 98.3 F 105 H 16 110/59 L 95 04/18/23 16:55 109 H 16 104/66 L 95 04/18/23 16:40 100 H 16 101/60 L 95 04/18/23 16:25 110 H 16 108/59 L 96 04/18/23 16:15 109 H 16 107/59 L 96 04/18/23 16:05 98.1 F 107 H 16 110/67 96 04/18/23 15:55 98.1 F 108 H 16 106/60 L 96 04/18/23 15:45 98.1 F 105 H 16 107/64 L 96 04/18/23 13:18 98.0 F 100 H 16 107/64 L 04/18/23 13:00 114 H 107/64 L 95 04/18/23 12:31 111 H 105/63 L 95 04/18/23 11:30 102 H 20 114/74 96 04/18/23 11:28 106 H 111/69 97 04/18/23 15:49 97.5 F L 102 H 12 114/67 O2 Del Method 04/19/23 10:07 Room Air 04/19/23 08:00 Room Air 04/19/23 08:35 Room Air 04/18/23 23:25 Room Air 04/18/23 22:25 Room Air 04/18/23 21:25 Room Air 04/18/23 20:25 Room Air 04/18/23 19:25 Room Air 04/19/23 05:00 Room Air 04/19/23 03:00 Room Air 04/18/23 20:00 Room Air 04/19/23 04:00 Room Air 04/19/23 01:00 Room Air 04/19/23 00:00 Room Air 04/18/23 23:00 Room Air 04/18/23 21:00 Room Air 04/18/23 19:00 Room Air 04/18/23 17:00 Room Air 04/18/23 18:55 Room Air 04/18/23 18:25 Room Air 04/18/23 17:55 Room Air 04/18/23 17:25 Room Air 04/18/23 17:10 Room Air 04/18/23 16:55 Room Air 04/18/23 16:40 Room Air 04/18/23 16:25 Room Air 04/18/23 16:15 Room Air 04/18/23 16:05 Room Air 04/18/23 15:55 Room Air 04/18/23 15:45 Room Air 04/18/23 13:18 Room Air 04/18/23 13:00 Room Air 04/18/23 12:31 Room Air 04/18/23 11:30 04/18/23 11:28 Room Air 04/18/23 15:49 Intake and Output 04/18/23 04/19/23 04/19/23 23:59 07:59 15:59 Intake Total 120 / 440 320 / 440 Output Total 0 / 0 0 / 0 0 / 0 Balance 0 / 1620 120 / 440 320 / 440 Intake: Intake, Oral Amount 120 / 240 120 / 240 Intake, Total IV Amount 200 / 200 Lactated Ringers 1000ML 1,000 200 / 200 ml @ 50 mls/hr IV .Q20H [facility] Rx# :[id number] Output: Output, Urine Amount 0 / 0 0 / 0 0 / 0 Other: Number of Voids 1 Number of Unmeasured Voids 1 1 1 Weight 57.153 kg Patient Weight 04/19/23 23:59 Weight 57.153 kg Laboratory Results - last 24 hr 04/18/23 11:45: Urine Color Yellow, Urine Appearance Clear, Urine pH 6.0, Ur Specific [place] 1.010, Urine Protein Negative, Urine Glucose (UA) Negative, Urine Ketones 1+, Urine Blood 1+, Urine Nitrate Negative, Urine Bilirubin Negative, Urine Urobilinogen 0.2, Ur Leukocyte Esterase Negative, Urine RBC Occasional, Urine WBC None, Ur Squamous Epith Cells 3-5, Urine Bacteria Trace, Urine HCG, Qual Negative 04/18/23 14:30: Urine Color Yellow, Urine Appearance Clear, Urine pH 6.0, Ur Specific [place] 1.015, Urine Protein Negative, Urine Glucose (UA) Negative, Urine Ketones 1+, Urine Blood 2+, Urine Nitrate Negative, Urine Bilirubin Negative, Urine Urobilinogen 0.2, Ur Leukocyte Esterase Negative, Urine RBC Occasional, Urine WBC None, Ur Squamous Epith Cells Occasional, Urine Bacteria Trace 04/19/23 05:17: WBC 12.7 H D, RBC 3.65 L, Hgb 11.5 L D, Hct 35.7 L, MCV 97.7, MCH 31.5 H, MCHC 32.3, RDW 12.4, Plt Count 175 D, MPV 8.1, Neut % (Auto) 86.8 H, Lymph % (Auto) 10.4, [place] % (Auto) 2.7, Eos % (Auto) 0.0 L, Baso % (Auto) 0.1, Neut # (Auto) 11.0 H, Lymph # (Auto) 1.3, [place] # (Auto) 0.3, Eos # (Auto) 0.0, Baso # (Auto) 0.0, Total Counted 100, Neutrophils % (Manual) 88 H, Lymphocytes % (Manual) 9 L, Monocytes % (Manual) 3, Platelet Estimate Normal, RBC Morphology Normal, Sodium 140, Potassium 2.9 L*, Chloride 109 H, Carbon Dioxide 29, Anion Gap 4.9 L, BUN 11, Creatinine 0.40 L, Estimated Creat Clear 184, Estimated GFR 186, Est GFR ( Amer) 225 D, Glucose 137 H, Calcium 8.1 L, Total Bilirubin 0.6, AST 28 D, ALT 29 D, Alkaline Phosphatase 45, Total Protein 5.6 L D, Albumin 2.9 L D, Globulin 2.7, Albumin/Globulin Ratio 1.1 I & O for Labs for Last 24 Hours: Intake & Output 04/16/23 04/17/23 04/18/23 04/19/23 23:59 23:59 23:59 23:59 Intake Total 1500 / 1620 440 / 440 Output Total 0 / 0 0 / 0 Balance 1500 / 1620 440 / 440 Weight 56.699 kg 57.153 kg Constitutional: Present no acute distress and cooperative Head: Present atraumatic and normocephalic Respiratory: Present normal respiratory effort; Absent rhonchi, wheezes or crackles Cardiac: Present Reg Rate and Rhythm GI: Present soft, tenderness (RLQ) and normal bowel sounds; Absent distention, guarding, rebound or rigidity Extremities: Present normal inspection and full ROM Skin: Present intact; Absent erythema Neuro: Present Grossly Intact, alert, awake, oriented x 3 and moves all extremities Assessment and Plan *Assessment and plan (1) Acute appendicitis: Status: Acute Category: Medical Code(s): K35.80 - Unspecified acute appendicitis (2) Hypokalemia: Status: Acute Category: Medical Code(s): E87.6 - Hypokalemia Plan Patient is a 32-year-old female with past medical history of hepatitis C IV drug abuse, substance abuse, per patient she has not used any drugs for past 7 years presented to hospital due to abdominal pain 10/10 intensity associated with nausea vomiting. Patient was found to have acute appendicitis, patient was taken to the OR, appendectomy for perforated appendicitis performed. Initiated on antibiotics. Continues to require inpatient management due to concern for peritonitis and suppurative appendicitis. Problems addressed as follows: Acute appendicitis status post appendectomy History of substance abuse History of hepatitis C -Continue Unasyn IV, white cell count showing improvement. 12.7 today. Repeat CBC, CMP, magnesium ordered for the morning. -Discussed case with surgery, advance diet. Clear liquids today. Continues to require inpatient management. Monitor for continued improvement. Will likely need oral antibiotics at time of discharge. - Continue Tylenol as needed 650 mg every 6 hours. Hydrocodone 5/325 every 6 hours as needed for breakthrough severe pain. Hypokalemia: Continue potassium chloride 40 mEq p.o. twice daily. Potassium 2.9 on morning labs. Repeat pending in the morning. Full code Clear liquid diet Heparin subcu
[2023-04-19 15:00] LABS: Anion Gap 7.8 mEq/L (5-15); Blood Urea Nitrogen 12 mg/dl (7-17); Calcium 8.5 mg/dl (8.4-10.2); Carbon Dioxide 27 mmol/L (22.0-30.0); Chloride 110 mmol/L (98-107); Creatinine Clearance Estimated 184 mL/min (50-200); Estimated Glomerular Filt Rate 186 ml/min (>60); GFR (African American) 225 ML/MIN (>60); Glucose 115 mg/dl (74-100); Potassium 3.8 mmoL/L (3.5-5.1); Sodium 141 mmol/L (136-145)
--- NOTE | 2023-04-19 15:29 | PC.NURSE ---
Pt. is aox4, upadlib, no complaints of pain this shift, 20g R AC with LR@ 50 ML/HR, ABD dressing is c/d/i.
[2023-04-19] MEDS: MORPHINE 2MG/ML SYRINGE 1 MG IV (21:38)
[2023-04-20] VITALS: BP 103/56; PULSE 69; RESP 16; TEMP 36.8; O2SAT 94
[2023-04-20 04:00] VITALS: BP 108/65; PULSE 67; RESP 16; TEMP 36.9; O2SAT 96; BMI 22.5
[2023-04-20] MEDS: AMPICILLIN SODIUM/SULBACTAM 3 GM in 0.9 % SODIUM CHLORIDE 100 ML IV ×2 (04:20→09:34)
--- NOTE | 2023-04-20 07:05 | EXP.SURG.PN ---
Subjective Patient reports: no new complaints, feels better and flatus Narrative: She states that she feels fine overall . She does complain of persistent soreness . Exam Data for Last 24 hours Vital signs and Labs for Last 24 Hours: Temp Pulse Resp BP Pulse Ox O2 Del Method 98.4 F 67 16 108/65 L 96 Room Air 04/20/23 04:00 04/20/23 04:00 04/20/23 04:00 04/20/23 04:00 04/20/23 04:00 04/20/23 06:51 Laboratory Results - last 24 hr 04/19/23 14:20: Sodium 141, Potassium 3.8 D, Chloride 110 H, Carbon Dioxide 27, Anion Gap 7.8, BUN 12, Creatinine 0.40 L, Estimated Creat Clear 184, Estimated GFR 186, Est GFR ( Amer) 225, Glucose 115 H, Calcium 8.5 I & O for Last 24 hours: Intake & Output 04/17/23 04/18/23 04/19/23 04/20/23 11:59 11:59 11:59 11:59 Intake Total 1939 Output Total 0 / 0 0 / 0 Balance 1939 / 1859 Weight 125 lb 126 lb 132 lb 1.6 oz Constitutional Constitutional: no acute distress *Routine Respiratory Exam Respiratory: Absent respiratory distress *Routine Cardiovascular Exam Cardiovascular: Absent tachycardia *Routine Abdominal Exam Abdominal: Present soft Comments: Incisions healing without evidence of infection Progress Note: A&P Assessment and plan (1) Acute appendicitis: Problem details: Perforated necrotizing appendicitis with established peritonitis Status: Acute Assessment and plan: Overall, doing well status post laparoscopic appendectomy Follow-up morning labs Continue to slowly advance diet Possible discharge home later today if leukocytosis resolved and if potassium normalized Augmentin prescription (transferred to pharmacy yesterday) to complete course of postoperative antibiotics Follow-up with Dr. Plaza as scheduled (2) Hypokalemia: Status: Acute
[2023-04-20 07:44] LABS: Basophils % 0.4 % (0.1-2.0); Eosinophils % 0.2 % (0.1-12.0); Hematocrit 33.6 % (37.0-47.0); Hemoglobin 11.1 g/dL (12.2-16.2); Lymphocytes # 2.5 K/mm3 (0.7-4.5); Lymphocytes % 23.7 % (10-50); Mean Corpuscular Hemoglobin 32.4 pg (27.0-31.2); Mean Corpuscular Volume 98.4 fl (81-99); Mean Platelet Volume 8.6 fl (7.4-10.4); Monocytes # 0.4 K/mm3 (0.1-1.0); Monocytes % 3.7 % (1.7-9.3); Neutrophils # 7.6 K/mm3 (1.8-7.8); Platelet Count 177 K/mm3 (142-424); Red Blood Count 3.41 M/mm3 (4.20-5.40); Red Cell Distribution Width 12.7 % (11.5-17.5); White Blood Count 10.5 K/mm3 (4.8-10.8)
[2023-04-20 08:00] VITALS: BP 110/66; PULSE 69; RESP 24; TEMP 36.9; O2SAT 95
[2023-04-20 08:15] LABS: Alanine Aminotransferase 26 U/L (12-78); Alkaline Phosphatase 49 U/L (38-126); Anion Gap 8.9 mEq/L (5-15); Aspartate Amino Transferase 25 U/L (14-36); Bilirubin,Total 0.4 mg/dl (0.2-1.3); Blood Urea Nitrogen 11 mg/dl (7-17); Calcium 8.3 mg/dl (8.4-10.2); Carbon Dioxide 25 mmol/L (22.0-30.0); Chloride 111 mmol/L (98-107); Creatinine Clearance Estimated 193 mL/min (50-200); Estimated Glomerular Filt Rate 186 ml/min (>60); GFR (African American) 225 ML/MIN (>60); Globulin 2.9 g/dL (1.3-3.2); Glucose 97 mg/dl (74-100); Magnesium 1.9 mg/dl (1.6-2.3); Potassium 3.9 mmoL/L (3.5-5.1); Sodium 141 mmol/L (136-145); Total Protein,Serum 5.9 g/dl (6.3-8.2)
[2023-04-20] MEDS: POTASSIUM CHLORIDE 20MEQ TAB 40 MEQ PO (08:17)
[2023-04-20] MEDS: ACETAMINOPHEN 325MG TAB 650 MG PO (10:11)
--- NOTE | 2023-04-20 10:32 | P.DS_ITS ---
General Admission date:: 04/18/23 Discharge date: 04/20/23 HPI HPI HPI: Patient is a 32-year-old female with past medical history of hepatitis C IV drug abuse, substance abuse, per patient she has not used any drugs for past 7 years presented to hospital due to abdominal pain 10/10 intensity associated with nausea vomiting. Patient was found to have acute appendicitis, patient was taken to the OR, patient had appendectomy performed. Patient was admitted for possible infection management and postoperative care. Patient denied fever chills Hospital Course Hospital Course Hospital Course: Patient is a 32-year-old female with past medical history of hepatitis C IV drug abuse, substance abuse, per patient she has not used any drugs for past 7 years presented to hospital due to abdominal pain 10/10 intensity associated with nausea vomiting. Patient was found to have acute appendicitis, patient was ta elen to the OR, appendectomy for perforated appendicitis performed. Initiated on antibiotics. Has done well with resolution of leukocytosis. Tolerating p.o. intake. Transition to oral antibiotics and stable for discharge home today. Follow-up with surgery in the next week. Problems addressed as follows: Acute appendicitis status post appendectomy History of substance abuse History of hepatitis C -Urgent appendectomy for ruptured appendicitis with peritonitis. Tolerated procedure well. Patient was initiated on Unasyn. White cell count improved from 18->10 by day of discharge. Tolerating advancement in diet with full liquids. Discussed case with surgery, will transition to Augmentin to complete antibiotic course. Plan for close follow-up with surgery as an outpatient. Pain stable. Continue home Suboxone for pain control after discharge. Okay to use Tylenol as needed. Advance to usual diet. Hypokalemia: Improved from 2.9-3.9 by day of discharge. No further supplementation needed. Stable discharge home. Exam Data for Last 24 hours Vital signs and Labs for Last 24 Hours: Temp Pulse Resp BP Pulse Ox O2 Del Method 98.4 F 69 24 110/66 95 Room Air 04/20/23 08:00 04/20/23 08:00 04/20/23 08:00 04/20/23 08:00 04/20/23 08:00 04/20/23 08:22 Laboratory Results - last 24 hr 04/19/23 14:20: Sodium 141, Potassium 3.8 D, Chloride 110 H, Carbon Dioxide 27, Anion Gap 7.8, BUN 12, Creatinine 0.40 L, Estimated Creat Clear 184, Estimated GFR 186, Est GFR ( Amer) 225, Glucose 115 H, Calcium 8.5 04/20/23 06:02: WBC 10.5, RBC 3.41 L, Hgb 11.1 L, Hct 33.6 L, MCV 98.4, MCH 32.4 H, MCHC 33.0, RDW 12.7, Plt Count 177, MPV 8.6, Neut % (Auto) 72.0, Lymph % (Auto) 23.7, [place] % (Auto) 3.7, Eos % (Auto) 0.2, Baso % (Auto) 0.4, Neut # (Auto) 7.6, Lymph # (Auto) 2.5, [place] # (Auto) 0.4, Eos # (Auto) 0.0, Baso # (Auto) 0.0, Sodium 141, Potassium 3.9, Chloride 111 H, Carbon Dioxide 25, Anion Gap 8.9, BUN 11, Creatinine 0.40 L, Estimated Creat Clear 193, Estimated GFR 186, Est GFR ( Amer) 225, Glucose 97, Calcium 8.3 L, Magnesium 1.9, Total Bilirubin 0.4, AST 25, ALT 26, Alkaline Phosphatase 49, Total Protein 5.9 L, Albumin 3.0 L, Globulin 2.9, Albumin/Globulin Ratio 1.0 L I & O for Last 24 hours: Intake & Output 04/17/23 04/18/23 04/19/23 04/20/23 23:59 23:59 23:59 23:59 Intake Total 1500 / 1620 1100 / 1100 1570 / 1570 Output Total 0 / 0 0 / 0 0 / 0 Balance 1500 / 1620 1100 / 1100 1570 / 1570 Weight 56.699 kg 57.153 kg 59.92 kg Constitutional Constitutional: no acute distress and average body habitus *Routine HEENT Exam Head: Present normocephalic Eye: Present EOMI and PERRL ENT: Present mucous membranes moist *Routine Neck Exam Neck: Present supple; Absent lymphadenopathy *Routine Respiratory Exam Respiratory: Present CTA bilaterally *Routine Cardiovascular Exam Cardiovascular: Present RRR *Routine Abdominal Exam Abdominal: Present soft, normoactive bowel sounds and tenderness (Lower abdomen); Absent distended or rebound *Routine Extremities Exam Extremities: Absent cyanosis, clubbing or edema *Routine Skin Exam Skin: Present warm; Absent rash *Routine Neurological Exam Neurological: Present alert, oriented X3 and moving all extremities; Absent altered mental status Results Data Completed and Pending Labs on day of discharge: Labs from last 24 hours 04/20/23 04/19/23 06:02 14:20 WBC 10.5 RBC 3.41 L Hgb 11.1 L Hct 33.6 L MCV 98.4 MCH 32.4 H MCHC 33.0 RDW 12.7 Plt Count 177 MPV 8.6 Neut % (Auto) 72.0 Lymph % (Auto) 23.7 [place] % (Auto) 3.7 Eos % (Auto) 0.2 Baso % (Auto) 0.4 Neut # (Auto) 7.6 Lymph # (Auto) 2.5 [place] # (Auto) 0.4 Eos # (Auto) 0.0 Baso # (Auto) 0.0 Sodium 141 141 Potassium 3.9 3.8 D Chloride 111 H 110 H Carbon Dioxide 25 27 Anion Gap 8.9 7.8 BUN 11 12 Creatinine 0.40 L 0.40 L Estimated Creat Clear 193 184 Estimated GFR 186 186 Est GFR ( Amer) 225 225 Glucose 97 115 H Calcium 8.3 L 8.5 Magnesium 1.9 Total Bilirubin 0.4 AST 25 ALT 26 Alkaline Phosphatase 49 Total Protein 5.9 L Albumin 3.0 L Globulin 2.9 Albumin/Globulin Ratio 1.0 L DS: Diagnosis Discharge Diagnosis (1) Acute appendicitis: Status: Acute Code(s): K35.80 - Unspecified acute appendicitis Problem details: Perforated necrotizing appendicitis with established peritonitis (2) Hypokalemia: Status: Acute Code(s): E87.6 - Hypokalemia Meds Home Medications and Allergies Home Medications Medication Instructions Recorded Confirmed Type buprenorphine 8 mg-naloxone 2 mg 1.25 tab sublingual DAILY 04/18/23 04/19/23 History sublingual tablet amoxicillin 875 mg-potassium 1 tab PO BID #14 tabs 04/19/23 Rx clavulanate 125 mg tablet New Prescriptions to Start Prescriptions: amoxicillin-pot clavulanate [facility] Allergies Allergy/AdvReac Type Severity Reaction Status Date / Time No Known Allergies Allergy Verified 04/18/23 09:39 Discharge Plan Disposition Patient Disposition: Home, Self-Care Condition: Fair Discharge Order Discharge Orders: Discharge Order (Routine); Ordered 04/20/23 Ordered By: Bud Cordova Follow up Plan Follow up with: Shiva Alatorre MD [Primary Care Provider] - 04/27/23 1:00 pm Kayden Plzaa MD [Staff Physician] - 05/03/23 2:30 pm Prescriptions/Medication Reconciliation: New amoxicillin-pot clavulanate 875-125 mg tablet 1 tab PO BID Qty: 14 0RF Continued buprenorphine-naloxone 8-2 mg tablet, sublingual 1.25 tab sublingual DAILY Patient Comments: DISSOLVE 1 & 1/2 TABLET UNDER THE TONGUE ONCE DAILY Rx Instructions: 1 1/4 (1.25) tablets PO DAILY Problem Reconciliation Problems Reviewed?: Yes Patient Discharge Instructions ACTIVITY: Continue current activity DIET: continue same diet Stand Alone Forms: [facility] School Release Patient Instructions: DI for an Appendectomy, DI for Surgical Site Infection, Appendectomy -- Laparoscopic Surgery Providers Primary Care Provider: Shiva Alatorre Admit Provider: Kristie Spaulding Attending Provider: Kristie Spaulding
--- NOTE | 2023-04-21 15:38 | CARE MANAGER ---
Patient called back related to hospital stay. She states she is a little sore, but doing well. She is taking her antibiotics. She denies questions or concerns. She is aware of her follow up appointments. VINOD Salinas
[2023-04-22 14:03] LABS: HBsAg Screen Negative (Negative); HCV Ab Reactive (Non Reactive); Hep A Ab, IGM Negative (Negative); Hep B Core Ab, IgM Negative (Negative)
--- NOTE | 2023-04-25 16:50 | P.PNANES_ITS ---
[facility] Anesthesia Record Part II Anesthesia Record Part II Discharge Time: 16:25 Destination: Medical Surgical Department PACU nurse assessment reviewed?: Yes Patient Condition:: Good Anesthesia Complications:: None Swallowing reflex intact?: Yes Airway Patency: Patent Cyanosis?: No Blood Pressure: 108/59 SaO2: 96 Respiratory Rate: 16 Pulse Rate: 110 Temperature: 98.1 F Mental Status: Alert & Oriented Pain level:: 0 Nausea and/or vomitting:: None Intake, IV Amount: 0 Hydration: Adequate
[2023-04-25 16:51] VITALS: BP 108/59; PULSE 110; RESP 16; TEMP 36.7; O2SAT 96
== END 2023-04-20 12:15 | disposition home or self-care (01) | DRG 399 ==
LOC: ER 13:19 → OR 13:23 → 2ND 14:54
PROVIDERS: Internal Medicine Adolescent Medicine; Surgery; Admitting Provider Internal Medicine; Emergency Provider Student in an Organized Health Care Education/Training Program; PCP Pediatrics; Visit Provider Internal Medicine
PROC: 0DTJ4ZZ Resection of Appendix, Percutaneous Endoscopic Approach (ICD-10-PCS; CPT 44970; principal; 2023-04-18 14:30)
DX: K35.31 Acute appendicitis with localized peritonitis and gangrene, without perforation (principal); K75.9 Inflammatory liver disease, unspecified; E87.6 Hypokalemia
CPT/HCPCS: 44970; 36415; 74177; 80048; 80053; 80074; 81001; 81025; 83605; 83690; 83735; 84703; 85007; 85025; 96374; 99285; J2405; J2710; Q9967

== ENCOUNTER 2023-05-25 10:49 | Outpatient (CLI) | payer OTHER, SELFPAY ==
--- NOTE | 2023-05-25 10:55 | CT_ITS ---
FINAL REPORT TECHNIQUE: After the administration of intravenous contrast, axial images were obtained through the abdomen and pelvis by computed tomography. This study was performed with technique to keep radiation doses as low as reasonably achievable, (ALARA). Individualized dose reduction techniques using automated exposure control or adjustment of the MA and/or KV according to the patient's size were employed. CLINICAL HISTORY: Post appendectomy, abdominal pain COMPARISON: 04/18/2023 FINDINGS: Abdomen: The lung bases are clear. The liver is normal in size and attenuation. The spleen is unremarkable. The adrenals are normal. The pancreas is unremarkable. The kidneys enhance appropriately. The aorta is normal in caliber. There is no free fluid or adenopathy. Pelvis: There has been interval postoperative changes of appendectomy. There is a small right ovarian cyst measuring 14 mm. There is urinary bladder wall thickening, likely inflammatory. Prominent left periuterine veins are seen which are nonspecific but may represent pelvic congestion syndrome. There is no free fluid or adenopathy. IMPRESSION: Small right ovarian cyst measuring 14 mm. Mild urinary bladder wall thickening, likely inflammatory. Prominent left periuterine veins which may represent pelvic congestion syndrome. Reviewed, Interpreted and Dictated by Kayden Medina III, MD Transcribed by Danae Zaragoza Authenticated and [facility]
[2023-05-25] MEDS: IOPAMIDOL-370 (76%);100ML BOTTLE 75 ML IV (11:13)
[2023-05-25] MEDS: SODIUM CHLORIDE 0.9% 10ML SYR (RAD ONLY) 10 ML IV (11:13)
== END 2023-05-25 23:59 ==
LOC: RAD 10:49
PROVIDERS: Visit Provider Surgery
DX: R10.9 Unspecified abdominal pain (principal); Z90.49 Acquired absence of other specified parts of digestive tract
CPT/HCPCS: 74177; Q9967